=== PATIENT | female | born 1960 | race Caucasian/White ===

== ENCOUNTER → 2018-06-04 | Day surgery (SDC) | payer OTHER ==
[~2018-06-04] MED LIST: DIAZEPAM 5 MG TAB PO; DIPHENHYDRAMINE 50 MG CAP PO; FAMOTIDINE 20 MG TAB PO; FENTAnyl 50 MCG/ML VIAL; HEPARIN 1000 UNITS/ML 10 ML INJ; IODIXANOL LOCM 100 ML BTL; IODIXANOL LOCM 50 ML BTL; LIDOCAINE 2% (MDV) 20 ML INJ; MIDAZOLAM 1 MG/ML 2 ML INJ; NITROGLYCERIN (IC) 100 MCG/ML INJ; SOD CHLORIDE 0.45% 1,000 ML IV; VERAPAMIL 5 MG INJ; morphine 2 MG INJ IV
[2018-06-04 08:18] LABS: ADD MAN DIFF? NO
[2018-06-04 08:21] LABS: BASOPHILS % 0.7 % (0.0-2.0); EOSINOPHILS # 0.1 10^3/ul (0.0-0.5); EOSINOPHILS % 1.7 % (0.0-7.0); HEMATOCRIT 40.4 % (37.0-47.0); HEMOGLOBIN 13.4 g/dl (12.0-16.0); LYMPHOCYTES # 1.8 10^3/ul (0.8-2.9); LYMPHOCYTES % 29.3 % (15.0-51.0); MEAN CORPUSCULAR HEMOGLOBIN 29.7 pg (29.0-33.0); MEAN CORPUSCULAR HGB CONC 33.2 g/dl (32.0-37.0); MEAN CORPUSCULAR VOLUME 89.6 fl (82.0-101.0); MEAN PLATELET VOLUME 10.5 fl (7.4-10.4); MONOCYTE # 0.5 10^3/ul (0.3-0.9); MONOCYTES % 7.8 % (0.0-11.0); NEUTROPHIL # 3.7 10^3/ul (1.6-7.5); NEUTROPHILS % 60.3 % (39.0-77.0); PLATELET COUNT 261 10^3/UL (140-415); RED BLOOD COUNT 4.51 10^6/ul (4.20-5.40); RED CELL DISTRIBUTION WIDTH 12.7 % (11.5-14.5)
[2018-06-04 08:44] LABS: INR 0.89; PARTIAL THROMBOPLASTIN TIME 27.6 Sec (23.0-35.0); PROTIME 12.1 Sec (11.9-14.9); PT RATIO 0.9
[2018-06-04 08:52] LABS: ANION GAP 7 (5-13); BLOOD UREA NITROGEN 16 mg/dl (7-20); CALCIUM 9.4 mg/dl (8.4-10.2); CARBON DIOXIDE 33 mmol/L (21-31); CHLORIDE 101 mmol/L (97-110); CHOL/HDL RATIO 4.7 RATIO; CHOLESTEROL 195 mg/dl (100-200); CREATININE 0.53 mg/dl (0.44-1.00); Estimated GFR > 60 mL/min (>60); GLUCOSE 103 mg/dl (70-220); HDL CHOLESTEROL 41 mg/dl (37-92); LDL CHOLESTEROL,CALCULATED 125 mg/dl; POTASSIUM 4.6 mmol/L (3.5-5.1); SODIUM 141 mmol/L (135-144); TRIGLYCERIDES 147 mg/dl (0-149)
[2018-06-04] MEDS: SOD CHLORIDE 0.9% 1,000 ML IV (10:19)
[2018-06-04] MEDS: ACETAMINOPHEN 325 MG TAB PO (11:53)
== END | disposition home or self-care (01) ==
LOC: SDS 07:26
DX: I25.10 Atherosclerotic heart disease of native coronary artery without angina pectoris (principal); I10 Essential (primary) hypertension
CPT/HCPCS: 71045; 80048; 80061; 85025; 85610; 85730; 93005; 93458

== ENCOUNTER 2018-12-14 06:06 | Day surgery (SDC) | payer OTHER ==
[2018-12-14] MEDS ORDERED: FENTAnyl 50 MCG/ML VIAL (09:13)
[2018-12-14] MEDS ORDERED: MIDAZOLAM 1 MG/ML 2 ML INJ ×2 (09:14)
== END 2018-12-14 12:51 | disposition home or self-care (01) ==
LOC: GIL 06:06
DX: Z12.11 Encounter for screening for malignant neoplasm of colon (principal); K64.8 Other hemorrhoids; K21.9 Gastro-esophageal reflux disease without esophagitis; I10 Essential (primary) hypertension
CPT/HCPCS: 43239; 88305; 88312